=== PATIENT | male | born 1960 | race Caucasian/White ===

== ENCOUNTER → 2020-07-31 15:32 | Outpatient (BNVA) | payer OTHER, SELFPAY | PROVIDERS: Visit Provider Specialist | DX: G40.309 Generalized idiopathic epilepsy and epileptic syndromes, not intractable, without status epilepticus (principal); R20.0 Anesthesia of skin; R20.2 Paresthesia of skin; F17.210 Nicotine dependence, cigarettes, uncomplicated | CPT/HCPCS: 99214 ==

== ENCOUNTER 2020-08-01 14:36 | Outpatient (CLI) | payer OTHER, SELFPAY ==
[2020-08-01 15:05] LABS: Basophils # 0.1 10^3/uL (0.0-0.1); Basophils % 0.7 %; Eosinophils # 0.3 10^3/uL (0.0-0.8); Eosinophils % 4.5 %; Hematocrit 42.4 % (42.0-52.0); Lymphocytes # 2.8 10^3/uL (0.8-4.8); Lymphocytes % 40.8 %; Mean Corpuscular Hemoglobin 31.8 pg (28.0-34.0); Mean Corpuscular Volume 96.4 fL (80-94); Mean Platelet Volume 11.3 fL (7.4-10.4); Monocytes # 0.5 10^3/uL (0.2-0.9); Monocytes % 7.2 %; Neutrophils # 3.18 10^3/uL (1.8-7.7); Neutrophils % 46.5 %; Nucleated Red Blood Cells % 0 %; Platelet Count 152 10^3/cmm (130-400); Red Cell Distribution Width 11.7 % (12.1-15.1); White Blood Count 6.8 10^3/uL (4.0-10.0)
[2020-08-01 15:37] LABS: Valproic Acid Level 77.3 ug/mL (50-100)
[2020-08-01 15:53] LABS: Alanine Aminotransferase 9 U/L (0-41); Albumin Level 4.4 g/dL (3.5-5.2); Alkaline Phosphatase 55 IU/L (40-130); Anion Gap 11.6 (5-19); Aspartate Amino Transferase 17 U/L (0-40); Blood Urea Nitrogen 16 mg/dL (8-23); Carbon Dioxide 30 mmol/L (22-29); Chloride 96 mmol/L (98-107); Globulin 2.8 g/dL (1.3-4.6); Glomerular Filtration Rate 85.5 mL/min (90-130); Glucose 81 mg/dL (65-115); Osmolality Calculated 276 mOsm/kg (285-295); Potassium 4.6 mmol/L (3.5-5.1); Sodium 133 mmol/L (136-145); Thyroid Stimulating Hormone 2.39 uIU/mL (0.27-4.20); Total Bilirubin 0.3 mg/dL (0.15-1.2); Total Protein 7.2 g/dL (6.6-8.7)
== END 2020-08-01 14:37 | disposition home or self-care (01) ==
PROVIDERS: Visit Provider Specialist
DX: R20.2 Paresthesia of skin (principal); R20.0 Anesthesia of skin
CPT/HCPCS: 36415; 80053; 80164; 84443; 85025

== ENCOUNTER 2021-10-06 07:02 | Emergency (ER) | payer OTHER, SELFPAY ==
[2021-10-06 07:09] VITALS: BP 137/85; PULSE 111; RESP 16; TEMP 36.6; O2SAT 95; BMI 29.3
[2021-10-06 07:21] VITALS: BP 142/86; PULSE 96; RESP 16; O2SAT 98
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
[2021-10-06] MEDS: sodium chloride 0.9% 1,000 ML 999 ML IV (07:41)
[2021-10-06 08:01] VITALS: BP 148/85; PULSE 85; RESP 16; O2SAT 100
[2021-10-06 08:26] VITALS: BP 154/98; PULSE 80; RESP 18; O2SAT 100
== END 2021-10-06 08:27 | disposition home or self-care (01) ==
PROVIDERS: Emergency Provider Emergency Medicine
DX: L55.9 Sunburn, unspecified (principal)
CPT/HCPCS: 99283; J7030

== ENCOUNTER 2022-08-28 07:43 | Outpatient (CLI) | payer OTHER, SELFPAY ==
--- NOTE | 2022-08-28 08:30 | CT_ITS ---
WS: [id number] CT chest wo con [id number] HISTORY: R05.9 - Cough, unspecified TECHNIQUE: Axial imaging performed through the thorax. Coronal and sagittal reformats are submitted. All CT scans at [facility] use at least one of these dose optimization techniques: automated exposure control; mA and/or kV adjustment per patient size (includes targeted exams where dose is mat ched to clinical indication); or iterative reconstruction. CONTRAST: None DLP: 355.91 mGy.cm COMPARISON: None available. Lungs and central airway: Chronic emphysema. No mass or pneumonia. No nodules. Pleura: Normal. No pleural effusion. Heart and pericardium: Normal size heart with no pericardial effusion. Mediastinum and karen: No mediastinum or hilar adenopathy. Vessels: Very mild atherosclerosis aorta. Normal size pulmonary artery. Moderate coronary artery calc ifications. Chest wall and lower neck: No soft tissue masses. Upper abdomen: Foreign body-like material in the proximal small bowel may be medicinal. Osseous structures: Very mild anterior wedging of T5, T6 and T7. CT/CT chest wo con [id number] IMPRESSION: 1. Chronic emphysema. No pneumonia or nodules. 2. Coronary artery atherosclerosis. 3. No adenopathy.
--- NOTE | 2022-08-28 09:30 | MR_ITS ---
WS: [id number] MRI LUMBAR SPINE NONCONTRAST TECHNIQUE: Sagittal T1, T2 and STIR imaging. Axial T1 and T2 imaging. CLINICAL INFORMATION: M53.86 - Other specified dorsopathies, lumbar region COMPARISON: None. FINDINGS: Mild lumbar curve. No acute compression. Large LEFT pericentral disc extrusion with moderate to sever e impingement on the LEFT thecal sac. Extruded disc material measures 15 mm in AP dimension. L1-L2: Normal. L2-L3: No significant disc bulging. Moderate arthropathy. Spinal canal and foramen are patent. L3-L4: Mild annular bulging. Mild central canal stenosis. Impingement subarticular recess bilaterally . Mild RIGHT and no significant LEFT foraminal narrowing. Moderate facet arthropathy. L4-L5: Mild annular bulging. Shallow central disc protrusion. Mild central canal stenosis. Impingemen t traversing RIGHT greater than LEFT L5 nerve roots. Mild bilateral foraminal narrowing. Mild facet a rthropathy. L5-S1: Large LEFT pericentral disc extrusion. This impinges the LEFT thecal sac with severe LEFT to R IGHT thecal sac narrowing. Mild LEFT greater than RIGHT foraminal narrowing. Mild facet arthropathy. Visualized pelvic bony structures: Normal. Paravertebral soft tissues: Normal. Chronic anterior wedging in the mid thoracic spine on the dry dip worker imaging. Adrenal glands are normal. I nfrarenal abdominal aortic aneurysm measuring 2.9 x 3.2 cm MR/MR lumbar spine wo con* [id number] IMPRESSION: 1. Large LEFT pericentral disc extrusion with moderate to severe impingement o n the LEFT thecal sac. Extruded disc material measures 15 mm in AP dimension. R ecommend spine surgery consultation. 2. Mild central canal stenosis L3-L4 with trace retrolisthesis. Small RIGHT fo raminal protrusion with mild RIGHT foraminal narrowing. 3. Mild central canal stenosis L4-L5 with impingement traversing L5 nerve root . Mild bilateral foraminal narrowing. 4. Moderate facet arthropathy L3-L5. 5. Infrarenal abdominal aortic aneurysm measuring 2.9 x 3.2 cm AP by transvers e. This can be followed up with CTa abdomen pelvis
== END 2022-08-28 07:44 | disposition home or self-care (01) ==
PROVIDERS: Visit Provider Specialist
DX: J43.9 Emphysema, unspecified (principal); M47.816 Spondylosis without myelopathy or radiculopathy, lumbar region; M48.061 Spinal stenosis, lumbar region without neurogenic claudication; M53.86 Other specified dorsopathies, lumbar region; I25.10 Atherosclerotic heart disease of native coronary artery without angina pectoris; I71.40 Abdominal aortic aneurysm, without rupture, unspecified; R05.9 Cough, unspecified; F17.200 Nicotine dependence, unspecified, uncomplicated
CPT/HCPCS: 71250; 72148

== ENCOUNTER → 2022-09-08 08:13 | Outpatient (BNVA) | payer OTHER, SELFPAY | PROVIDERS: Visit Provider Physician Assistant | DX: M51.27 Other intervertebral disc displacement, lumbosacral region (principal); G83.4 Cauda equina syndrome; M47.816 Spondylosis without myelopathy or radiculopathy, lumbar region; M53.86 Other specified dorsopathies, lumbar region | CPT/HCPCS: 72110 ==

== ENCOUNTER 2022-09-08 10:04 | Inpatient (IN) | payer OTHER, SELFPAY ==
[2022-09-08] VITALS (8 sets, daily range): BP systolic 105–149; BP diastolic 69–80; PULSE 80–101; RESP 15–20; TEMP 36.9–37.1; O2SAT 90–94; BMI 28.0
--- NOTE | 2022-09-08 10:08 | ECG_ITS ---
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 Measurements Intervals [place] Rate: 98 P: 63 TX: 151 QRS: -7 QRSD: 84 T: 61 QT: 327 QTc: 419 Interpretive Statements SINUS RHYTHM INTERPRETATION BASED ON A DEFAULT AGE OF 40 YEARS No previous ECG available for comparison Electronically Signed On 09-09-2022 0:29:47 CDT by Raj Estrella M.D. [email or web address] regional medical [email or web address] Design Automationcleveland clinic hillcrest hospital.[employer]/store/NU/[id number]/[id number] f
--- NOTE | 2022-09-08 10:08 | XR_ITS ---
WS: [id number] XR chest 1V portable [id number] REASON FOR EXAM: surgery FINDINGS: Mild tortuosity of the thoracic aorta. The heart size is normal. Calcified granulomatous disease in both hemithoraces. No active pulmonary parenchymal or pleural disease identified. Chest is unchanged compared to 03/29/2019. XR/XR chest 1V portable [id number] IMPRESSION: Stable chest with no significant abnormality.
--- NOTE | 2022-09-08 10:47 | PC.NURSE ---
PATIENT BELONGINGS patient belongings locked in [facility]- 2 packs cigarettes, 1 internet sales representative, 2 pocket knives, one wallet with a total of $7, all in one dollar bills. 2 bank envelopes, one containing $155- 1-100 bill, 2-20s, 1-10, 5-1s. the other containing $201.65 - 10-20's, 1-one dollar bill, two quarters, one dime and one nickel. patient also had home medications including oxycodone(21 pills in the bottle) all this counted and witnessed with patient himself and Jennifer Cash RN.
[2022-09-08] MEDS: oxyCODONE-APAP 5-325 mg Tablet PO ×3 (12:35→23:32)
[2022-09-08 19:00] LABS: Basophils % 0.4 %; Eosinophils # 0.2 10^3/uL (0.0-0.8); Eosinophils % 2.1 %; Hematocrit 43.1 % (42.0-52.0); Hemoglobin 14.4 g/dL (11.7-16.6); Lymphocytes # 1.9 10^3/uL (0.8-4.8); Lymphocytes % 22.7 %; Mean Corpuscular HGB Conc 33.4 g/dL (30.0-36.0); Mean Corpuscular Hemoglobin 32.7 pg (28.0-34.0); Mean Corpuscular Volume 97.7 fl (80-94); Mean Platelet Volume 11.4 fL (7.4-10.4); Monocytes # 0.8 10^3/uL (0.2-0.9); Monocytes % 9.3 %; Neutrophils # 5.56 10^3/uL (1.8-7.7); Neutrophils % 65.1 %; Nucleated Red Blood Cells % 0 %; Platelet Count 142 10^3/cmm (130-400); Red Blood Count 4.41 10^6/uL (4.1-5.3); Red Cell Distribution Width 12.4 % (12.1-15.1); White Blood Count 8.5 10^3/uL (4.0-10.0)
[2022-09-08 19:22] LABS: Anion Gap 13.9 (5-19); Blood Urea Nitrogen 22 mg/dL (8-23); Calcium 9.6 mg/dL (8.5-10.5); Carbon Dioxide 30 mmol/L (22-29); Chloride 94 mmol/L (98-107); Glucose 68 mg/dL (65-115); Osmolality Calculated 280 mOsm/kg (285-295); Potassium 3.9 mmol/L (3.5-5.1); Sodium 134 mmol/L (136-145)
[2022-09-09] VITALS (21 sets, daily range): BP systolic 99–180; BP diastolic 70–126; PULSE 71–120; RESP 16–18; TEMP 36.2–37; O2SAT 90–97
--- NOTE | 2022-09-09 | XR_ITS ---
WS: [id number] Lumbar spine, C-arm fluoroscopy views, 09/09/2022 Clinical Data: EVELIA PIC Comparison: Lumbar spine, 09/08/2022 Findings: Dr. Shane performed a lumbar decompression. XR/XR lumbar spine 1V port [id number] Impression: Lumbar decompression.
[2022-09-09] MEDS: divalproex DR 500 mg Tablet 1000 MG PO ×2 (00:09→08:46)
--- NOTE | 2022-09-09 05:29 | PC.NURSE ---
pt wedding band removed at this time and placed in pyxis with other personal belongings by this nurse pre operatively
--- NOTE | 2022-09-09 10:26 | PM.HP ---
Providers/Chief Complaint Admitting Physician: Good Shane DO Chief Complaint: Cauaequeina History of Present Illness Mr Pedraza is a 62 year old male patient here today for evaluation of left lower extremity pain. He reports significant left leg pain that has been on going for 2 months with no known injury.? 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 He reports pain in his left buttock region that radiates into his left lower extremity. He reports a burning pain in his left lower extremity. He states coughing increases his pain.? He reports wetting himself and not being able to move his bowels due to lack of sensation in his perineum.? This been progressively getting worse in the last 1 to 2 weeks.? He currently takes Oxycodone and Gabapentin from his PCP for pain relief. He has a recent MRI and is here today to review results and discuss further treatment plan. Chief Complaint: low back pain Onset: 2 months ago Duration: constant Characteristics: aching, burning Severity: 810 Location: lumbar Radiating symptoms: radiates into LLE Aggravating factors: coughing, bending, standing and sitting for long periods at a time. Alleviating factors: Oxycodone, Gabapentin Neuro deficits: reports numbness, tingling, weakness. incontinence of bowel/bladder, saddle anesthesia. Prior tx: medication ? Review of Systems General: Reports: 10 or more systems reviewed and unremarkable except in HPI and below Const: Denies: fever(s), chills or body aches Eyes: Denies: change in vision or blurry vision Card: Denies: chest pain or orthopnea Resp: Denies: dyspnea, productive cough or wheezing GI: Denies: abdominal pain, nausea or vomiting Musc: Reports: back pain and extremity pain Skin/Breast: Denies: changes in skin color or dry skin Neuro: Reports: difficulty walking; Denies: numbness in extremities or weakness in extremities Psych: Denies: anxiety Bo/Lymph: Denies: easy bruising or easy bleeding Medications/Allergies Home Medications Medication Instructions Recorded Confirmed Last Taken Type baclofen 10 mg tablet 10 mg PO BID 08/05/22 09/09/22 09/08/22 08:00 History divalproex 500 mg tablet,delayed 1,000 mg PO BID 90 days #360 tabs 08/05/22 09/09/22 09/08/22 08:00 Rx release (Depakote) gabapentin 250 mg/5 mL oral 300 mg PO TID 08/05/22 09/09/22 09/08/22 08:00 History solution oxycodone 10 mg tablet 10 mg PO QID PRN pain 30 days #120 09/04/22 09/09/22 09/08/22 02:00 Rx tabs Allergies Allergy/AdvReac Type Severity Reaction Status Date / Time Penicillins Allergy unknown Verified 09/08/22 08:15 PFSH Acute PFSH: Family History Other CAD (coronary artery disease) Diabetes Social History Smoking and tobacco status: current every day smoker cigarettes Alcohol intake: current Alcohol intake frequency: holidays/special occasions only Vitals/I&O/Wt Last Vital Signs Temp 98.3 F 09/09/22 07:51 Pulse 91 09/09/22 07:51 Resp 16 09/09/22 07:51 BP 150/85 09/09/22 07:51 Pulse Ox 92 09/09/22 07:51 O2 Del Method Room Air 09/09/22 07:51 09/08/22 09/09/22 09/09/22 22:59 06:59 14:59 Intake Total 480 / 720 0 / 720 Balance 480 / 720 0 / 720 Weight last 48 hrs Weight 224 lb 9.6 oz Physical Exam Narrative: Patient is alert o rient x3 has a goo d general appearan ce normal mood and affect.? Patient presents with anta lgic left gait. ? Demonstrates dorsi flexion but unable to plantarflexion worse on the left than the right. ? No palpatory and percussion pain th roughout the ollie pinous musculature of the thoracolum bar spine.? Decrea sed functional ran ge of motion of th e thoracolumbar sp ine with Flexion t o 35 degrees, exte nds 0 degrees, lat erally bends 10 de grees symmetricall y.? Normal sensati on to light touch through all dermat omal layers.? Norm al sensation light touch down both l ower extremities w ith 4/5 motor stre ngth through left lower extremity 5/ 5 strength through out right? motor g roups.? No palpabl e pain over the SI joints bilaterall y.? Negative Patri ck and Fabere sign .? Positive straig ht leg raise on th e left negative on the right.? Skin is clear warm with normal sensation to light touch, ca lves are supple wi th no medial thigh tenderness,? nega tive Homans' sign. ? No palpable lymp hadenopathy bilate rally.? Reflexes a re 1+ and symmetri c about the knees and and right ankl e, absent to the l eft ankle reflex.? No hyperreflexia or clonus.? Downgo ing Babinski's venkatesh aterally.? Dorsali s pedis and analytical tech ior tibial pulses are 2+.? No palpab le edema bilateral ly. HENMT:?? COMMON NORMALS: no rmocephalic and at raumatic? HEAD & S CALP: normocephali c and atraumatic Resp:?? COMMON NORMALS: no rmal respiratory e ffort Cardio:?? COMMON NORMALS: re gular rate and reg ular rhythm? RATE: regular rate? RHY THM: regular rhyth m GI:?? COMMON NORMALS: So ft to palpation an d non-tender? PALP ATION: Yes Soft to palpation :?? COMMON NORMALS: Ye s no CVA tendernes s? BLADDER/KIDNEY EXAM: Yes no CVA t enderness Back/Pelvis:?? COMMON NORMALS: no CVA tenderness Psych:?? COMMON NORMALS: me ntal status grossl y normal and coope rative Data 09/08/22 18:26 09/08/22 18:26 A&P Assessment and plan (1) Herniated nucleus pulposus, L5-S1, left: 1.? Large LEFT pericentral disc extrusion with moderate to severe impingement on the LEFT thecal sac. Extruded disc material measures 15 mm in AP dimension. Recommend spine surgery consultation. 2.? Mild central canal stenosis L3-L4 with trace retrolisthesis. Small RIGHT foraminal protrusion with mild RIGHT foraminal narrowing. 3.? Mild central canal stenosis L4-L5 with impingement traversing L5 nerve root. Mild bilateral foraminal narrowing. 4.? Moderate facet arthropathy L3-L5. 5.? Infrarenal abdominal aortic aneurysm measuring 2.9 x 3.2 cm AP by transverse. This can be followed up with CTa abdomen pelvis ? After reviewing MRI scan in conjunction with the patient's symptoms concerned of cauda equina syndrome and will recommend direct admission for a left-sided L5-S1 microdiscectomy.? Basically the L5-S1 space is occupied by disc material and that it appears to be extruded.? With his symptoms of saddle anesthesia cauda equina symptoms of uncontrolled bowel and bladder habits is the reasoning for the direct admission and recommended surgical decompression.? Attestations Medical Necessity Statement*: cauda equina Coding Level of Care Code [facility] Herniated nucleus pulposus, L5-S1, left M51.27
--- NOTE | 2022-09-09 10:44 | PC.CHAP ---
Pastoral Care Encounter/Spiritual Assessment Type of Contact [] Declined wader boot top assembler visit [] Patient/Family/Request visit [] Outpatient visit [] Follow-up visit [] Physician referral [] Code/Alert [x] Routine visit [] Staff referral [] Actively dying [x] Patient sleeping [] Family support [] [] Out of room [] Palliative care [] [] Receiving care in room [] Pre-surgical visit [] Trauma [] Long length of stay [] ICU visit [] Other: Relational/Emotional Strength [x] Patient feels connected with others/family/visitors/staff [] Distress [] Loneliness/isolation [] Abandonment Spirituality of Patient [x ] Person of Shantelle [] Attends Zoroastrian of their Shantelle [x] Believes in Prayer [] Reads Bible or Faith materials [] There are Spiritual issues to be addressed Trim Machine Adjuster Interventions [x] Prayer [x] Active listening [] Non-anxious presence [] Spiritual/emotional support [] Crisis/trauma care [] Spiritual counseling [] Bereavement support [] Provided bereavement packet [] Provided Bible/devotional materials [] Provided toy/stuffed animal, coloring book to patient or family member [] Provided Communion [] Anointing/[place] [] Salvation [x] Completed spiritual assessment [] Other: Impact on Illness or Injury [] Angry [] Fearful [] Anxious [] Often cries [] Exhaustion [] Unable to work [] Unable to attend jew [] Unable to walk/stand [] Unable to read [] Unable to drive [] Unable to eat/drink [] Unable to sleep [] Unable to be with family [] Patient intubated [] Other: Summary Time spent with patient 10 min
[2022-09-09] MEDS: oxyCODONE-APAP 5-325 mg Tablet PO ×2 (10:51→16:58)
--- NOTE | 2022-09-09 12:18 | PC.NURSE ---
pt went to surgery
--- NOTE | 2022-09-09 12:22 | ANES.PREANE2 ---
Pre-Anesthetic Assessment Height/Weight: Height 1.91 m Weight 101.877 kg Temp Pulse Resp BP Pulse Ox O2 Del Method 98.2 F 79 16 143/83 92 Room Air 09/09/22 12:17 09/09/22 12:17 09/09/22 12:17 09/09/22 12:17 09/09/22 12:17 09/09/22 12:17 Preop Diagnosis: Herniated nucleus pulposus left L5-S1, cauda equina syndrome Operation Date: 09/09/22 13:00 Proposed Procedures p Left L5-S1 Microdiscectomy(Left) - Good Shane, DO Familial anesthetic complications: None Was Beta Praveena taken within 24 hours: N/A Was Clonidine taken within 24 hours: N/A Last intake: Intake Last Liquid Date 09/08/22 Last Liquid Time 23:45 Last Solid Date 09/08/22 Last Solid Time 18:00 Social No alcohol and No tobacco Exam alert, oriented x 3, clear to auscultation bilaterally and regular rate & rhythm Airway Dentition: partials Neuropsych seizure/epilepsy cauda equina syndrome Anesthetic Plan ASA status: 2 Anesthesia: General Risk of > 500 ml blood loss (7ml/kg in children): No Medications/Allergies Home Medications Medication Instructions Recorded Confirmed Last Taken Type baclofen 10 mg tablet 10 mg PO BID 08/05/22 09/09/22 09/08/22 08:00 History divalproex 500 mg tablet,delayed 1,000 mg PO BID 90 days #360 tabs 08/05/22 09/09/22 09/08/22 08:00 Rx release (Depakote) gabapentin 250 mg/5 mL oral 300 mg PO TID 08/05/22 09/09/22 09/08/22 08:00 History solution oxycodone 10 mg tablet 10 mg PO QID PRN pain 30 days #120 09/04/22 09/09/22 09/08/22 02:00 Rx tabs Allergies Allergy/AdvReac Type Severity Reaction Status Date / Time Penicillins Allergy unknown Verified 09/08/22 08:15 Current Medications Generic Name Dose Route Start Last Admin Trade Name Freq PRN Reason Stop Dose Admin Divalproex Sodium 1,000 mg 09/08/22 23:50 09/09/22 08:[address] 500 Mg Tablet PO 1,000 mg BID KATE Administration Oxycodone/Acetaminophen 1 - 2 tab 09/08/22 10:14 09/09/22 10:51 Oxycodone-Apap 5-325 Mg Tablet PO 2 tab Q4H PRN Administration MODERATE TO SEVERE PAIN PFSH Anesthesia Family History Other CAD (coronary artery disease) Diabetes Social History Smoking and tobacco status: current every day smoker cigarettes Alcohol intake: current Alcohol intake frequency: holidays/special occasions only Data Anesthesia 09/08/22 18:26 09/08/22 18:26 Short CBC 09/08/22 Range/Units 18:26 WBC 8.5 (4.0-10.0) 10^3/uL Hgb 14.4 (11.7-16.6) g/dL Hct 43.1 (42.0-52.0) % MCV 97.7 H (80-94) fl Plt Count 142 (130-400) 10^3/cmm Neut % (Auto) 65.1 % Neut # (Auto) 5.56 (1.8-7.7) 10^3/uL BMP 09/08/22 18:26 Sodium 134 L Potassium 3.9 Chloride 94 L Carbon Dioxide 30 H BUN 22 Creatinine 1.2 Glucose 68 Calcium 9.6 Cardiac Studies: No Data to Display
[2022-09-09] MEDS: sodium chloride 0.9% 1,000 ML 30 ML (12:25)
[2022-09-09] MEDS: clindamycin 900 MG/50 ML PREMIX 100 MG IV (12:54)
--- NOTE | 2022-09-09 14:06 | PM.OP ---
Operative Report Date of procedure: September 09, 2022 Pre-op diagnosis: Preop Diagnosis Herniated nucleus pulposus left L5-S1, cauda equina syndrome Post-op diagnosis: same Procedure done: 1. Left L5/S1 laminectomy with partial facetectomy and diskectomy Surgeon: Good Shane Malted Milk Mixer: Miguel Hooker Malted Milk Mixer: The surgical clinical reviewer, Miguel Hooker, PAC was needed for his expertise under the microscope. He was important and necessary throughout the procedure to complete in a safe and timely manner. He assisted with patient positioning prepping and draping tissue retraction suctioning of the operative field protection of the dural sac and tissue closure Estimated blood loss (mL): 5 Procedure: 1. Left L5/S1 laminectomy with partial facetectomy and diskectomy Patient is brought to the operative suite. After undergoing anesthesia they are placed in the prone position. All areas of impingement are well padded. Patient is then prepped and draped in the normal sterile fashion. A skin incision is made over the L5/S1 level. This is confirmed under c-arm guidance. A series of dilators are passed and the tubular retractor is docked on the L5 lamina. A bovie is used to clear the soft tissue off the lamina and the L 5/S1 facet joint. A high speed jarrod is then used to perform the laminectomy and take down the medial aspect of the L 5/S1 facet joint. A kerrison rongeure was then used to take down the remaining lamina and smooth the edge of the laminectomy up to the point where the ligamentum flavum attaches. Attention was then brought to the medial aspect of the facet joint. The remaining medial aspect of the superior and inferior aspect of the facet joint were taken down with the kerrison from the pedicle of L5 to S1. The facet joint had significant hypertrophy. Attention was then brought to the Ligamentum Flavum. The ligament was taken down from the lamina of L5 to S1 and out medially to the remaining facet joint. The ligament was thick. The dura was then exposed. The dura was in good repair. The L5 nerve was then traced with a curette out the L5/S1 foramen and found to be adequately decompressed. The S1 nerve was traced with a curette around the S1 pedicle. The lateral recess was opened with a kerrison helping to further decompress the S1 nerve. The disc was identified and removed toit wasa large extruded disc. Wound is then irrigated copiously with saline and surgiflo is used to stop any bleeding. The tubular retractor is removed and the wound is closed with vicryl and monocryl suture. Glue is then used to protect the wound. A sterile dressing is then placed. Patient was then placed in the supine position and transferred to the PACU in stable condition.
[2022-09-09] MEDS: labetalol 5 mg/mL SDV 20mL 10 MG IVP (14:21)
--- NOTE | 2022-09-09 15:16 | ANE.PACU2 ---
Inpatient post-anesthesia follow up: Airway intact: Yes Vital signs: Temperature 97.2 F Pulse Rate 85 Respiratory Rate 17 Blood Pressure 139/80 Pulse Oximetry 95 Oxygen Delivery Me thod Nasal Cannula Oxygen Flow Rate 2 Fraction of Inspir ed Oxygen Hydration adequate: Yes Nausea and vomiting: No Pain level: 1 Mental status: Baseline
--- NOTE | 2022-09-10 13:50 | P.DS_ITS ---
Discharge Providers Date of Admission: 09/08/22 10:04 Date of Discharge: September 09, 2022 Attending Provider at Admission: Good Shane DO Attending Provider at Discharge: Good Shane DO Diagnoses at Discharge Discharge Diagnosis (1) Herniated nucleus pulposus, L5-S1, left: Status: Acute Reason for Visit Reason for Visit: [place] Discharge Data Studies Completed and Pending Completed Studies During Hospitalization Category Date Time Status CXRP [XR chest 1V portable [id number]] Routine Exams 09/08/22 10:08 Completed XR lumbar spine 1V port [id number] Routine Exams 09/09/22 Completed Pending at discharge Category Date Time Status C-arm Fluoroscopy [id number] Routine Exams 09/09/22 10:09 Taken Radiology Impressions Chest X-Ray 09/08/22 10:08 IMPRESSION: Stable chest with no significant abnormality. Lumbar Spine X-Ray 09/09/22 00:00 Impression: Lumbar decompression. Laboratory Results WBC 8.5 10^3/uL (4.0-10.0) 09/08/22 18:26 RBC 4.41 10^6/uL (4.1-5.3) 09/08/22 18:26 Hgb 14.4 g/dL (11.7-16.6) 09/08/22 18:26 Hct 43.1 % (42.0-52.0) 09/08/22 18:26 MCV 97.7 fl (80-94) H 09/08/22 18:26 MCH 32.7 pg (28.0-34.0) 09/08/22 18:26 MCHC 33.4 g/dL (30.0-36.0) 09/08/22 18:26 RDW 12.4 % (12.1-15.1) 09/08/22 18:26 Plt Count 142 10^3/cmm (130-400) 09/08/22 18:26 MPV 11.4 fL (7.4-10.4) H 09/08/22 18:26 Neut % (Auto) 65.1 % 09/08/22 18:26 Lymph % (Auto) 22.7 % 09/08/22 18:26 [place] % (Auto) 9.3 % 09/08/22 18:26 Eos % (Auto) 2.1 % 09/08/22 18:26 Baso % (Auto) 0.4 % 09/08/22 18: Neut # (Auto) 5.56 10^3/uL (1.8-7.7) 09/08/22 18: Lymph # (Auto) 1.9 10^3/uL (0.8-4.8) 09/08/22 18: [place] # (Auto) 0.8 10^3/uL (0.2-0.9) 09/08/22 18: Eos # (Auto) 0.2 10^3/uL (0.0-0.8) 09/08/22 18: Baso # (Auto) 0.0 10^3/uL (0.0-0.1) 09/08/22 18: Nucleated RBC % (auto) 0 % 09/08/22 18: Nucleated RBCs # 0.0 /100WBC 09/08/22 18:26 Sodium 134 mmol/L (136-145) L 09/08/22 18: Potassium 3.9 mmol/L (3.5-5.1) 09/08/22 18: Chloride 94 mmol/L (98-107) L 09/08/22 18:26 Carbon Dioxide 30 mmol/L (22-29) H 09/08/22 18:26 Anion Gap 13.9 (5-19) 09/08/22 18:26 BUN 22 mg/dL (8-23) 09/08/22 18: Creatinine 1.2 mg/dL (0.7-1.2) 09/08/22 18:26 GFR Calculation 61.0 mL/min (90-130) L 09/08/22 18:26 Glucose 68 mg/dL (65-115) 09/08/22 18: Calculated Osmolality 280 mOsm/kg (285-295) L 09/08/22 18:26 Calcium 9.6 mg/dL (8.5-10.5) 09/08/22 18:26 Vitals Last Vital Signs Temp 97.8 F 09/09/22 15:05 Pulse 85 09/09/22 16:05 Resp 18 09/09/22 17:41 BP 126/83 09/09/22 16:05 Pulse Ox 93 09/09/22 16:05 O2 Del Method Nasal Cannula 09/09/22 16:05 O2 Flow Rate 2 09/09/22 15:23 Discharge Plan Discharge Patient Disposition: Home Condition: Stable Prescriptions: New oxycodone 10 mg tablet 10 mg PO Q4H PRN (Reason: pain) 7 Days Qty: 40 0RF Continued gabapentin 250 mg/5 mL solution 300 mg PO TID baclofen 10 mg tablet 10 mg PO BID divalproex [Depakote] 500 mg tablet,delayed release (DR/EC) 1,000 mg PO BID 90 Days Qty: 360 3RF oxycodone 10 mg tablet 10 mg PO QID PRN (Reason: pain) 30 Days Qty: 120 0RF Discharge Orders: Discharge Order (Routine); Ordered 09/09/22 Ordered By: Good Shane Referrals: Good Shane DO [Physician] - 09/24/22 10:45 am (APPOINTMENT WITH DANIEL HUGHES) Jeannette Farnsworth DO [Referring] - 09/14/22 2:20 pm (APPOINTMENT WITH BRENDAN ELAM) Discharge Diet: Advance as tolerated Discharge Activity: Limit activity as instructed Patient Instructions: Oxycodone, Rapid Release (By mouth), Opioid Safety Activity Restrictions/Additional Instructions: Thank you for [facility] for your care! The following is a list of instructions, from your provider, to follow upon your discharge to ensure you have the optimal recovery from your recent injury orsurgery. Follow-up care is a fry part of your treatment and safety. Be sure to make and go to all appointments, and call your doctor if you are having problems. If you do not already have a follow-up appointment made, call Dr. Shane office in the next 1-3 days to make follow up appointment for 2 weeks at [phone]. It is also a good idea to know your test results and keep a list of the medicines you take. Medications will be prescribed for you at your provider's discretion. These medications are to be used as instructed; if they are taken more often that prescribed they will not be refilled early and in most cases will not be refilled at all. > When a refill is needed,you should contact [facility] 2-3 business days before your prescription runs out. Medications will NOT be refilled by automotive consultant providers after hours! > Many pain medications contain Tylenol (Acetaminophen). Do not consume more than 4,000 mg of Tylenol per day in total with any combination ofmedications. > Pain medications can cause constipation. Please use an over the counter stool softener as directed, while taking pain medications. Consulty our local pharmacist with questions or recommendations on stool softeners. If constipation persists, contact our office or your primary care provider. > While under our care,you are not to receive pain medications or other controlled substances from any other provider unless our office is notified and approves. Any attempts to do so will result in refusal to prescribe any further pain medications and possible dismissal from our practice. ? Your wound and/or dressing should remain clean and dry for 2 days after surgery. On postoperative day 2 (48 hours after your surgery) the dressing (if present) should be removed and it is okay to shower and get the incision wet. Pad dry afterwards. No further dressing should be required from that point on. Do not put any creams or ointments on theincision > It is normal for there to be a small amount of discharge (bloody or blood tinged) present from a surgical wound for the first 1-3days. > The wound should be examined twice a day for signs of infection. Mild redness or bruising is to be expected but indications that an infection maybe starting would include; An increase in redness, swelling, or discharge, a foul odor present around the incision, and/or a fever greater than 101 ?F ? Showering is permitted, however we ask that you do not take a bath, sit in a whirlpool / Jacuzzi, or go swimming for 1 month. For only the first 2 days after surgery, lt wilt be necessary for you to cover your wound/dressing with plastic and tape to keep it dry. ? Walking is essential for the healing process after surgery. We would like you to slowly advance your walking. This should be done on relatively flat clear ground (inside or out) or can be done on a treadmill. Remember this goal does not have to happen all at once, slowly increase your distance and duration. This can be broken into more more than one walk per day as tolerated. Patients who walk as directed after surgery rarely require Physical Therapy. In the unlikely event this issue arises your provider will direct hospital staff to make the appropriate arrangements. ? No lifting over 5 pounds {a gallon of milk) or bending/twisting until further notice. Each of these activities places an unnecessary amount of stress onto the body and can impede the delicate healing process. > Instead of bending at the waist, keep your back straight and bend at the knees. > Instead of twisting your torso, keep your back straight and turn your entire body with your feet. ? You may sleep in any position which makes you comfortable. Many patients find comfort sleeping in a reclining chair. It is not abnormal to have difficulty sleeping for the first several weeks following your surgery. We recommend trying Benadry! or Tylenol PM as directed to help with your sleeping difficulties. Both medications are over the counter and available withoutprescription. ? NO SMOKING!!! Smoking dramatically increases the probability of developing postoperative wound infections. ? Common complaints after lumbar and/or thoracic spine surgery include, but are not limited to: numbness and/or tingling in the legs, pain around the incision and surrounding tissues, muscle spasms, or stiffness of the middle to low back. Contact our office if these symptoms persist or if an acute change occurs. ? No driving for the first 3-5days, and not while taking narcotics until seen at your follow-up appointment and cleared. There are no restrictions for riding on short trips, however if you take a longer trip, arrangements should be made to make regular stops to get out of the vehicle and stretch . ? Swelling is an unfortunate event that will take place with any surgery and is the primary source of your postoperative discomfort. While walking and regular approved activities helps control inflammation, there are additional steps you can take to minimizeswelling. > Place ice over the surgical site and surrounding tissue for twenty minutes, followed by applying a low/medium heat (heating pad) for an additional twenty minutes every 1-2 hours as needed for painrelief. > You may use of over the counter anti-inflammatory medications (Ibuprofen, Motrin, Aleve, Advil, etc) as directed on the package label. These types of medicines wm significantly reduce the amount of discomfort you experience after surgery from swelling. It should be noted that if you have and allergy to any of these medications, or a history of ulcers or kidney disease you should consult you primary care provider prior to starting these medications. Discharge Attestations Time Spent in Discharge Care*: less than 30 min Quality Metrics Clinical Quality Measures [ No reported AMI, CVA or VTE this stay] Coding Level of Care Code Acute Code for Chg Fwd Diagnoses Herniated nucleus pulposus, L5-S1, left M51.27
== END 2022-09-09 17:45 | disposition home or self-care (01) | DRG 519 ==
PROVIDERS: Physician Assistant; Admitting Provider Orthopaedic Surgery; Visit Provider Orthopaedic Surgery
PROC: 0SB40ZZ Excision of Lumbosacral Disc, Open Approach (ICD-10-PCS; principal; 2022-09-09 12:50)
DX: M51.27 Other intervertebral disc displacement, lumbosacral region (principal); G83.4 Cauda equina syndrome; Z79.891 Long term (current) use of opiate analgesic; Z88.0 Allergy status to penicillin; F17.210 Nicotine dependence, cigarettes, uncomplicated
CPT/HCPCS: 36415; 71045; 72020; 76000; 80048; 85025; 93005; J1100; J2370; J2405; J2704; J2710; J3010; J3490; J7030

== ENCOUNTER 2022-10-18 16:01 | Emergency (ER) | payer OTHER, SELFPAY ==
[2022-10-18 16:15] VITALS: BP 133/90; PULSE 108; RESP 14; TEMP 36.7; O2SAT 96; BMI 27.2
--- NOTE | 2022-10-18 16:49 | XRR_ITS ---
PROCEDURE INFORMATION: Exam: XR Chest Exam date and time: 10/18/2022 5:00 PM Age: 62 years old Clinical indication: Fever TECHNIQUE: Imaging protocol: Radiologic exam of the chest. Views: 1 view. COMPARISON: CR XR chest 1V portable [id number] 09/08/2022 9:26 AM FINDINGS: Lungs: There is an indistinct nodular density projecting above the left hilum that may be infectious or neoplastic in nature. Remaining lung birch are aerated and clear. Pleural spaces: Unremarkable. No pleural effusion. No pneumothorax. Heart/Mediastinum: Unremarkable. No cardiomegaly. Bones/joints: Unremarkable for age. XR/XR chest 1V portable [id number] IMPRESSION: Indistinct nodular opacity left upper lobe that may be infectious or neoplastic in nature. CT chest recommended for further evaluation.
--- NOTE | 2022-10-18 16:50 | ED_ITS ---
Documented by User: Ferdinand Dominguez DO 10/18/22 17:57 HPI - Fever General: Chief Complaint: Fever Stated Complaint: Fever, Sore throat Time Seen by Provider: 10/18/22 16:37 Source: patient Mode of arrival: ambulatory Limitations: no limitations History of Present Illness: This patient presents to the emergency department because he had fever and body aches and chills over the past 3 to 4 days. He denies any known exposure to infectious disease. He states he has had mild sore throat and a mild nonproductive cough. He did have 24 hours of diarrhea but no abdominal pain and no vomiting and diarrhea resolved. Again no travel no recent antibiotic use no known exposure to infectious disease. Is a smoker. Had lumbar laminectomy approximately 6 weeks ago without sequelae. He states he has been laying in the bed for the last couple days because not feeling well and he has had some more back achiness but no loss of bowel or bladder control, anesthesia of the perin eal area or weakness. No known exposure to COVID-19 etc. MD elicited complaint: fever Associated symptoms: Reports chills, cough and diarrhea; Deny abdominal pain, flank pain, chest pain, dysuria, extremity pain, headache(s), nasal congestion, nausea or vomiting Review of Systems Const: Reports: fever(s), chills and body aches Eyes: Denies: change in vision or blurry vision ENMT: Reports: throat pain; Denies: odynophagia, nasal discharge or nasal congestion Card: Denies: chest pain, palpitations or irregular heart rhythm Resp: Reports: non-productive cough and wheezing; Denies: dyspnea or productive cough GI: Reports: diarrhea; Denies: abdominal pain, nausea, vomiting, hematemesis or melena : Denies: flank pain, difficulty urinating, dysuria or urinary frequency Musc: Denies: neck pain, extremity pain or extremity swelling Skin/Breast: Denies: rash, pruritus or erythema Neuro: Denies: headache(s), numbness in extremities or weakness in extremities Endo: Denies: polyuria or polydipsia PFSH ED PFSH: Family History Other CAD (coronary artery disease) Diabetes Social History Smoking and tobacco status: current every day smoker cigarettes Alcohol intake: current Alcohol intake frequency: holidays/special occasions only Physical Exam Narrative: EXAM NARRATIVE: The patient is awake alert and cooperative during examination Const: COMMON NORMALS: no acute distress, average body habitus and alert GENERAL APPEARANCE: cooperative and comfortable ORIENTATION/CONSCIOUSNESS: Yes awake HENMT: COMMON NORMALS: normocephalic, atraumatic, Normal nasal mucous membranes and turbinates present and moist oral mucous membranes HEAD & SCALP: normocephalic and atraumatic NOSE: Normal nasal mucous membranes and turbinates present Eye: COMMON NORMALS: Equal, round and reactive pupils present, EOMs intact bilaterally and conjunctivae normal CONJUNCTIVA: Yes conjunctivae normal P UPIL: Yes Equal, round and reactive pupils present Neck/C-Spine: COMMON NORMALS: full ROM, no meningeal signs, no JVD and No carotid bruits Chest: COMMONS NORMALS: normal inspection of the chest and normal palpation of entire chest wall Resp: COMMON NORMALS: normal respiratory effort, No retractions and No use of accessory muscles EFFORT & INSPECTION: Yes able to speak in complete sentences AUSCULTATION: no crackles, no rhonchi and wheezes (Faint scattered wheezes) Cardio: COMMON NORMALS: no JVD, regular rate, regular rhythm, No murmurs present (Cardio) and Peripheral pulses 2+ throughout RATE: regular rate RHYTHM: regular rhythm PERIPHERAL PULSES: Peripheral pulses 2+ throughout GI: COMMON NORMALS: Normal to inspection, nondistended, normoactive bowel sounds present, Soft to palpation, non-tender and no masses PALPATION: Yes Soft to palpation : COMMON NORMALS: Yes no CVA tenderness BLADDER/KIDNEY EXAM: Yes no CVA tenderness Back/Pelvis: COMMON NORMALS: no CVA tenderness, thoracic and lumbar spine normal to inspection, no thoracic nor lumbar tenderness, thoraco-lumbar ROM normal and straight leg raise negative bilaterally Extremity: COMMON NORMALS: normal to inspection, full ROM, capillary refill normal, no calf tenderness and no pedal edema Neuro: COMMON NORMALS: moves all extremities, no focal motor deficits and no sensory deficits noted SENSORIUM/ORIENTATION: Yes alert MENINGEAL SIGNS: Yes no meningeal signs CRANIAL NERVES: Yes CN normal except as noted Psych: COMMON NORMALS: mental status grossly normal Skin: COMMON NORMALS: no rashes or lesions noted, turgor normal and no jaundice GENERAL SKIN EXAM: no rashes or lesions noted and turgor normal Course Reevaluation(s): Reevaluation #1: Case discussed and turned over to Dr. Wayne Time: 17:54 Vital Signs: Vital signs: Vital Signs Temperature 98.1 F 10/18/22 16:15 Pulse Rate 83 10/18/22 18:00 Respiratory Rate 14 10/18/22 16:15 Blood Pressure 195/114 10/18/22 18:00 Pulse Oximetry 97 10/18/22 18:00 Oxygen Delivery Me thod Room Air 10/18/22 18:00 MDM - Fever Medical Decision Making Patient with a 3-day history of fever with sore throat and mild nonproductive cough. Patient is being evaluated in the emergency department for the symptoms to ensure no evidence of pneumonia, strep pharyngitis, COVID-19 etc. Lab Data I reviewed the patient's lab results. 10/18/22 17:10 10/18/22 17:10 Radiology Impressions Chest X-Ray 10/18/22 16:49 IMPRESSION: Indistinct nodular opacity left upper lobe that may be infectious or neoplastic in nature. CT chest recommended for further evaluation. Chest CT 10/18/22 17:48 IMPRESSION: 1. Left upper lobe subsegmental airspace opacification suggestive of a pneumonic infiltrate, 1 month follow-up exam and close clinical correlation advised to assess for resolution as an underlying neoplastic process cannot be excluded. 2. Several upper thoracic spine compression deformities appear chronic. 3. Bilateral mild perinephric edema suggestive of renal insufficiency. 4. Diverticulosis without diverticulitis somewhat visualized. 5. Scattered prominent subcentimeter short axis nonspecific mediastinal lymph nodes. 6. Coronary artery atherosclerotic calcifications. 7. Emphysematous changes. COMMENTS: In the absence of a history or active diagnosis of lung cancer, it is recommended that this patient with emphysema be evaluated for enrollment in a low dose CT lung cancer screening program. Laboratory Results WBC 6.9 10^3/uL (4.0-10.0) 10/18/22 17:10 RBC 4.77 10^6/uL (4.1-5.3) 10/18/22 17:10 Hgb 15.3 g/dL (11.7-16.6) 10/18/22 17:10 Hct 45.3 % (42.0-52.0) 10/18/22 17:10 MCV 95.0 fl (80-94) H 10/18/22 17:10 MCH 32.1 pg (28.0-34.0) 10/18/22 17:10 MCHC 33.8 g/dL (30.0-36.0) 10/18/22 17:10 RDW 11.7 % (12.1-15.1) L 10/18/22 17:10 Plt Count 172 10^3/cmm (130-400) 10/18/22 17:10 MPV 10.7 fL (7.4-10.4) H 10/18/22 17:10 Neut % (Auto) 58.9 % 10/18/22 17:10 Lymph % (Auto) 27.7 % 10/18/22 17:10 [place] % (Auto) 7.8 % 10/18/22 17:10 Eos % (Auto) 4.3 % 10/18/22 17:10 Baso % (Auto) 0.7 % 10/18/22 17:10 Neut # (Auto) 4.08 10^3/uL (1.8-7.7) 10/18/22 17:10 Lymph # (Auto) 1.9 10^3/uL (0.8-4.8) 10/18/22 17:10 [place] # (Auto) 0.5 10^3/uL (0.2-0.9) 10/18/22 17:10 Eos # (Auto) 0.3 10^3/uL (0.0-0.8) 10/18/22 17:10 Baso # (Auto) 0.1 10^3/uL (0.0-0.1) 10/18/22 17:10 Nucleated RBC % (auto) 0 % 10/18/22 17:10 Nucleated RBCs # 0.0 /100WBC 10/18/22 17:10 Sodium 133 mmol/L (136-145) L 10/18/22 17:10 Potassium 4.5 mmol/L (3.5-5.1) 10/18/22 17:10 Chloride 95 mmol/L (98-107) L 10/18/22 17:10 Carbon Dioxide 27 mmol/L (22-29) 10/18/22 17:10 Anion Gap 15.5 (5-19) 10/18/22 17:10 BUN 14 mg/dL (8-23) 10/18/22 17:10 Creatinine 0.9 mg/dL (0.7-1.2) 10/18/22 17:10 GFR Calculation 85.0 mL/min (90-130) L 10/18/22 17:10 Glucose 90 mg/dL (65-115) 10/18/22 17:10 Calculated Osmolality 276 mOsm/kg (285-295) L 10/18/22 17:10 Calcium 9.2 mg/dL (8.5-10.5) 10/18/22 17:10 Total Bilirubin 0.6 mg/dL (0.15-1.2) 10/18/22 17:10 AST 17 U/L (0-40) 10/18/22 17:10 ALT 10 U/L (0-41) 10/18/22 17:10 Alkaline Phosphatase 60 U/L (40-130) 10/18/22 17:10 Total Protein 7.2 g/dL (6.6-8.7) 10/18/22 17:10 Albumin 4.1 g/dL (3.5-5.2) 10/18/22 17:10 Globulin 3.1 g/dL (1.3-4.6) 10/18/22 17:10 SARS-CoV-2 Ag (Rapid) negative (Negative) 10/18/22 17:22 Group A Strep Rapid Negative (Negative) 10/18/22 17:23 Discharge Plan Discharge Patient Disposition: Home Clinical Impression: Pneumonia Condition: Stable Prescriptions: New doxycycline hyclate 100 mg tablet 100 mg PO BID 7 Days Qty: 14 0RF No Action gabapentin 250 mg/5 mL solution 300 mg PO TID baclofen 10 mg tablet 10 mg PO BID divalproex [Depakote] 500 mg tablet,delayed release (DR/EC) 1,000 mg PO BID 90 Days Qty: 360 3RF montelukast 10 mg tablet 10 mg PO DAILY fluticasone propion-salmeterol [Wixela Inhub] 500-50 mcg/dose blister with device 1 inh inhalation BID oxycodone 10 mg tablet 10 mg PO QID PRN (Reason: pain) 30 Days Qty: 120 0RF Discharge Orders: Discharge ED (Routine); Ordered 10/18/22 Ordered By: Montez Wayne Referrals: Jeannette Farnsworth DO [Primary Care Provider] - 1-3 days Discharge Diet: Advance as tolerated Discharge Activity: Resume usual activity Patient Instructions: Community Acquired Pneumonia (ED) Coding Level of Care Code ED Adult Basic Education Manager for Chg Fwd Documented by User: Montez Wayne MD 10/18/22 19:13 HPI - Fever General: Chief Complaint: Fever Stated Complaint: Fever, Sore throat Time Seen by Provider: 10/18/22 16:37 PFSH ED PFSH: Family History Other CAD (coronary artery disease) Diabetes Social History Smoking and tobacco status: current every day smoker cigarettes Alcohol intake: current Alcohol intake frequency: holidays/special occasions only Course Vital Signs: Vital signs: Vital Signs Temperature 98.1 F 10/18/22 16:15 Pulse Rate 83 10/18/22 18:00 Respiratory Rate 14 10/18/22 16:15 Blood Pressure 195/114 10/18/22 18:00 Pulse Oximetry 97 10/18/22 18:00 Oxygen Delivery Me thod Room Air 10/18/22 18:00 MDM - Fever Medical Decision Making Patient with a 3-day history of fever with sore throat and mild nonproductive cough. Patient is being evaluated in the emergency department for the symptoms to ensure no evidence of pneumonia, strep pharyngitis, COVID-19 etc. Patient presents here with fever chills CT chest does show pneumonia we will start him on doxycycline he is to follow-up with his PCP along with his spine surgeon he has no signs of spinal infection blood work is normal he is return if worsening he understands agrees to plan. Lab Data 10/18/22 17:10 10/18/22 17:10 Radiology Impressions Chest X-Ray 10/18/22 16:49 IMPRESSION: Indistinct nodular opacity left upper lobe that may be infectious or neoplastic in nature. CT chest recommended for further evaluation. Chest CT 10/18/22 17:48 IMPRESSION: 1. Left upper lobe subsegmental airspace opacification suggestive of a pneumonic infiltrate, 1 month follow-up exam and close clinical correlation advised to assess for resolution as an underlying neoplastic process cannot be excluded. 2. Several upper thoracic spine compression deformities appear chronic. 3. Bilateral mild perinephric edema suggestive of renal insufficiency. 4. Diverticulosis without diverticulitis somewhat visualized. 5. Scattered prominent subcentimeter short axis nonspecific mediastinal lymph nodes. 6. Coronary artery atherosclerotic calcifications. 7. Emphysematous changes. COMMENTS: In the absence of a history or active diagnosis of lung cancer, it is recommended that this patient with emphysema be evaluated for enrollment in a low dose CT lung cancer screening program. Laboratory Results WBC 6.9 10^3/uL (4.0-10.0) 10/18/22 17:10 RBC 4.77 10^6/uL (4.1-5.3) 10/18/22 17:10 Hgb 15.3 g/dL (11.7-16.6) 10/18/22 17:10 Hct 45.3 % (42.0-52.0) 10/18/22 17:10 MCV 95.0 fl (80-94) H 10/18/22 17:10 MCH 32.1 pg (28.0-34.0) 10/18/22 17:10 MCHC 33.8 g/dL (30.0-36.0) 10/18/22 17:10 RDW 11.7 % (12.1-15.1) L 10/18/22 17:10 Plt Count 172 10^3/cmm (130-400) 10/18/22 17:10 MPV 10.7 fL (7.4-10.4) H 10/18/22 17:10 Neut % (Auto) 58.9 % 10/18/22 17:10 Lymph % (Auto) 27.7 % 10/18/22 17:10 [place] % (Auto) 7.8 % 10/18/22 17:10 Eos % (Auto) 4.3 % 10/18/22 17:10 Baso % (Auto) 0.7 % 10/18/22 17:10 Neut # (Auto) 4.08 10^3/uL (1.8-7.7) 10/18/22 17:10 Lymph # (Auto) 1.9 10^3/uL (0.8-4.8) 10/18/22 17:10 [place] # (Auto) 0.5 10^3/uL (0.2-0.9) 10/18/22 17:10 Eos # (Auto) 0.3 10^3/uL (0.0-0.8) 10/18/22 17:10 Baso # (Auto) 0.1 10^3/uL (0.0-0.1) 10/18/22 17:10 Nucleated RBC % (auto) 0 % 10/18/22 17:10 Nucleated RBCs # 0.0 /100WBC 10/18/22 17:10 Sodium 133 mmol/L (136-145) L 10/18/22 17:10 Potassium 4.5 mmol/L (3.5-5.1) 10/18/22 17:10 Chloride 95 mmol/L (98-107) L 10/18/22 17:10 Carbon Dioxide 27 mmol/L (22-29) 10/18/22 17:10 Anion Gap 15.5 (5-19) 10/18/22 17:10 BUN 14 mg/dL (8-23) 10/18/22 17:10 Creatinine 0.9 mg/dL (0.7-1.2) 10/18/22 17:10 GFR Calculation 85.0 mL/min (90-130) L 10/18/22 17:10 Glucose 90 mg/dL (65-115) 10/18/22 17:10 Calculated Osmolality 276 mOsm/kg (285-295) L 10/18/22 17:10 Calcium 9.2 mg/dL (8.5-10.5) 10/18/22 17:10 Total Bilirubin 0.6 mg/dL (0.15-1.2) 10/18/22 17:10 AST 17 U/L (0-40) 10/18/22 17:10 ALT 10 U/L (0-41) 10/18/22 17:10 Alkaline Phosphatase 60 U/L (40-130) 10/18/22 17:10 Total Protein 7.2 g/dL (6.6-8.7) 10/18/22 17:10 Albumin 4.1 g/dL (3.5-5.2) 10/18/22 17:10 Globulin 3.1 g/dL (1.3-4.6) 10/18/22 17:10 SARS-CoV-2 Ag (Rapid) negative (Negative) 10/18/22 17:22 Group A Strep Rapid Negative (Negative) 10/18/22 17:23 Discharge Plan Discharge Patient Disposition: Home Clinical Impression: Pneumonia Condition: Stable Prescriptions: New doxycycline hyclate 100 mg tablet 100 mg PO BID 7 Days Qty: 14 0RF No Action gabapentin 250 mg/5 mL solution 300 mg PO TID baclofen 10 mg tablet 10 mg PO BID divalproex [Depakote] 500 mg tablet,delayed release (DR/EC) 1,000 mg PO BID 90 Days Qty: 360 3RF montelukast 10 mg tablet 10 mg PO DAILY fluticasone propion-salmeterol [Wixela Inhub] 500-50 mcg/dose blister with device 1 inh inhalation BID oxycodone 10 mg tablet 10 mg PO QID PRN (Reason: pain) 30 Days Qty: 120 0RF Discharge Orders: Discharge ED (Routine); Ordered 10/18/22 Ordered By: Montez Wayne Referrals: Jeannette Farnsworth DO [Primary Care Provider] - 1-3 days Discharge Diet: Advance as tolerated Discharge Activity: Resume usual activity Patient Instructions: Community Acquired Pneumonia (ED) Coding Level of Care Code ED Adult Basic Education Manager for Thaddeus Almodovar
[2022-10-18] MEDS: sodium chloride 0.9% 1,000 ML 999 ML IV (17:15)
[2022-10-18 17:21] VITALS: BP 167/112; PULSE 90; O2SAT 97
[2022-10-18 17:22] LABS: Basophils # 0.1 10^3/uL (0.0-0.1); Basophils % 0.7 %; Eosinophils # 0.3 10^3/uL (0.0-0.8); Eosinophils % 4.3 %; Hematocrit 45.3 % (42.0-52.0); Hemoglobin 15.3 g/dL (11.7-16.6); Lymphocytes # 1.9 10^3/uL (0.8-4.8); Lymphocytes % 27.7 %; Mean Corpuscular HGB Conc 33.8 g/dL (30.0-36.0); Mean Corpuscular Hemoglobin 32.1 pg (28.0-34.0); Mean Platelet Volume 10.7 fL (7.4-10.4); Monocytes # 0.5 10^3/uL (0.2-0.9); Monocytes % 7.8 %; Neutrophils # 4.08 10^3/uL (1.8-7.7); Neutrophils % 58.9 %; Nucleated Red Blood Cells % 0 %; Platelet Count 172 10^3/cmm (130-400); Red Blood Count 4.77 10^6/uL (4.1-5.3); Red Cell Distribution Width 11.7 % (12.1-15.1); White Blood Count 6.9 10^3/uL (4.0-10.0)
[2022-10-18 17:41] LABS: Rapid Strep A Test Negative (Negative)
[2022-10-18 17:45] LABS: SARS Covid-2 Antigen negative (Negative)
--- NOTE | 2022-10-18 17:48 | CTR_ITS ---
PROCEDURE INFORMATION: Exam: CT Chest Without Contrast; Diagnostic Exam date and time: 10/18/2022 6:12 PM Age: 62 years old Clinical indication: Fever; Additional info: Kristian nodule TECHNIQUE: Imaging protocol: Diagnostic computed tomography of the chest without contrast. Radiation optimization: All CT scans at this facility use at least one of these dose optimization techniques: automated exposure control; mA and/or kV adjustment per patient size (includes targeted exams where dose is matched to clinical indication); or iterative reconstruction. REPORTING DATA: Count of CT and Cardiac NM exams in prior 12 months: This patient has received [address] and 0 known cardiac nuclear medicine studies in the 12 months prior to the current study. COMPARISON: CT chest wo con [id number] 08/28/2022 8:21 AM RADIATION DOSE METRICS: Total DLP (mGy-cm): 495.54 FINDINGS: Lungs: Left upper lobe subsegmental airspace opacification suggestive of a pneumonic infiltrate, 1 month follow-up exam and close clinical correlation advised to assess for resolution as an underlying neoplastic process cannot be excluded. Emphysematous changes. Pleural spaces: Unremarkable. No pneumothorax. No pleural effusion. Heart: Unremarkable. No cardiomegaly. No pericardial effusion. Coronary arteries: Coronary artery atherosclerotic calcifications. Lymph nodes: Scattered prominent subcentimeter short axis nonspecific mediastinal lymph nodes. Vasculature: Unremarkable. No aortic aneurysm. Kidneys and ureters: Bilateral mild perinephric edema suggestive of renal insufficiency. Stomach and bowel: Diverticulosis without diverticulitis somewhat visualized. Bones/joints: Several upper thoracic spine compression deformities appear chronic. Soft tissues: Unremarkable. CT/CT chest wo con [id number] IMPRESSION: 1. Left upper lobe subsegmental airspace opacification suggestive of a pneumonic infiltrate, 1 month follow-up exam and close clinical correlation advised to assess for resolution as an underlying neoplastic process cannot be excluded. 2. Several upper thoracic spine compression deformities appear chronic. 3. Bilateral mild perinephric edema suggestive of renal insufficiency. 4. Diverticulosis without diverticulitis somewhat visualized. 5. Scattered prominent subcentimeter short axis nonspecific mediastinal lymph nodes. 6. Coronary artery atherosclerotic calcifications. 7. Emphysematous changes. COMMENTS: In the absence of a history or active diagnosis of lung cancer, it is recommended that this patient with emphysema be evaluated for enrollment in a low dose CT lung cancer screening program.
[2022-10-18 18:00] VITALS: BP 195/114; PULSE 83; O2SAT 97
[2022-10-18 18:00] LABS: Alanine Aminotransferase 10 U/L (0-41); Albumin Level 4.1 g/dL (3.5-5.2); Alkaline Phosphatase 60 U/L (40-130); Anion Gap 15.5 (5-19); Aspartate Amino Transferase 17 U/L (0-40); Blood Urea Nitrogen 14 mg/dL (8-23); Calcium 9.2 mg/dL (8.5-10.5); Carbon Dioxide 27 mmol/L (22-29); Chloride 95 mmol/L (98-107); Globulin 3.1 g/dL (1.3-4.6); Glucose 90 mg/dL (65-115); Osmolality Calculated 276 mOsm/kg (285-295); Potassium 4.5 mmol/L (3.5-5.1); Sodium 133 mmol/L (136-145); Total Bilirubin 0.6 mg/dL (0.15-1.2); Total Protein 7.2 g/dL (6.6-8.7)
[2022-10-18] MEDS: hyDRALAzine 20 mg/mL INJ 1 mL 10 MG IVP (19:01)
[2022-10-18] MEDS: doxycycline 100 mg Tablet PO (19:04)
[2022-10-18 19:15] LABS: Urine Appearance Clear (CLEAR); Urine Color Yellow (Yellow)
[2022-10-18 19:16] VITALS: BP 174/103; PULSE 85; RESP 16; O2SAT 96
[2022-10-18 19:16] LABS: Add Urine Microscopic? YES; Bilirubin Urine 1+ (Negative); Blood Urine 2+ (Negative); Glucose Urine UA Norm (Normal); Ketones Urine 1+ (Negative); Leukocyte Esterase Urine Trace (Negative); Nitrate Urine Negative (Negative); Protein Urine Neg (Negative); Urobilinogen Urine 1 mg/dL (Negative); pH Urine 6 (5-7)
[2022-10-18 19:20] LABS: Bacteria Urine 2+ /hpf
[2022-10-18 19:21] LABS: Hyaline Casts Urine 0-4 /lpf; Squamous Epithelial Cell Urine 55-80 /hpf (0-5)
== END 2022-10-18 19:16 | disposition home or self-care (01) ==
PROVIDERS: Emergency Medicine; Emergency Provider Emergency Medicine; PCP Family Medicine
DX: J18.9 Pneumonia, unspecified organism (principal); F17.210 Nicotine dependence, cigarettes, uncomplicated
CPT/HCPCS: 71045; 71250; 80053; 81001; 85025; 87081; 87426; 87880; 96374; 99285; 99291; J0360; J7030

== ENCOUNTER 2023-01-19 14:52 | Outpatient (CLI) | payer OTHER, SELFPAY ==
[2023-01-19 15:28] LABS: Blood Urea Nitrogen 13 mg/dL (8-23)
--- NOTE | 2023-01-19 15:30 | CT_ITS ---
WS: [id number] CT ANGIOGRAPHY ABDOMEN AND PELVIS AORTA HISTORY: I71.40 - Abdominal aortic aneurysm, without rupture, unsp... TECHNIQUE: CT angiogram is performed during IV injection. Reformation /MIP images reviewed. All CT sc ans at [facility] use at least one of these dose optimization techniques: automated exposure c ontrol; mA and/or kV adjustment per patient size (includes targeted exams where dose is matched to cl inical indication); or iterative reconstruction. CONTRAST: Omnipaque 350; 100 mL IV. DLP: 619.51 mGy.cm COMPARISON: MRI lumbar spine 08/28/2022 Emphysematous changes at the lung bases. No mass or pneumonia. Normal size heart. Small hiatal hernia . Abdominal aorta: Mild atherosclerotic changes throughout the abdominal aorta. Mild dilatation of the infrarenal aorta. Maximum transverse diameter is 3.2 cm x 2.9 cm anterior posterior. Mild aneurysmal dilatation extends over a length of 4.7 cm to the bifurcation. Aneurysm tapers at the bifurcation. Th ere is only a small amount of intimal thickening and calcified plaque throughout the abdominal aorta. Celiac axis and SMA are patent. There is a small amount of atherosclerotic plaque in the proximal SM A. JAYDA is also patent. Bilateral common iliac arteries are patent. There is calcified plaque and intimal thickening proximal ly greatest on the LEFT. Small ulcerated plaque proximal LEFT common iliac. Internal and external bridget ac arteries are patent. Early arterial imaging through the liver, spleen, pancreas, gallbladder and kidneys are negative. Gal lbladder is slightly contracted. Stomach is moderately distended with food products. No small bowel o bstruction. Normal appendix. No significant diverticular disease. No adenopathy or ascites. No destru ctive bone lesions. IMPRESSION: 1. Mild infrarenal abdominal aortic aneurysm with a maximal diameter of 3.2 cm. No increase in size s burak the lumbar MRI of 08/28/2022. 2. Mild atherosclerotic plaque continues into the common iliac arteries no aneurysms. 3. No ascites or adenopathy
[2023-01-19] MEDS: iohexol 350 mg/mL 500 mL Btl (per mL) IV (15:37)
== END 2023-01-19 14:53 | disposition home or self-care (01) ==
PROVIDERS: Radiology Neuroradiology; PCP Family Medicine; Visit Provider Specialist
DX: I71.40 Abdominal aortic aneurysm, without rupture, unspecified (principal)
CPT/HCPCS: 74174; 82565; 84520; Q9967

== ENCOUNTER 2023-02-25 14:20 | Outpatient (CLI) | payer MEDICARE, SELFPAY ==
--- NOTE | 2023-02-25 15:20 | XR_ITS ---
WS: [id number] 2 views of the left second finger, 02/25/2023 Clinical Data: left index finger injury Comparison: None. Findings: No fractures or dislocations are seen. The soft tissues are normal. The joint spaces are not remarkab le. Impression: Negative left second finger.
== END 2023-02-25 14:21 | disposition home or self-care (01) ==
PROVIDERS: PCP Family Medicine; Visit Provider Family Medicine
DX: S69.92XA Unspecified injury of left wrist, hand and finger(s), initial encounter (principal); X58.XXXA Exposure to other specified factors, initial encounter; Z13.6 Encounter for screening for cardiovascular disorders; Z13.1 Encounter for screening for diabetes mellitus
CPT/HCPCS: 73140; 80053; 80061

== ENCOUNTER → 2023-03-09 14:35 | Outpatient (BNVA) | payer MEDICARE, SELFPAY | PROVIDERS: PCP Family Medicine; Visit Provider Surgery | DX: Z12.11 Encounter for screening for malignant neoplasm of colon (principal) | CPT/HCPCS: 99024; 99203 ==

== ENCOUNTER 2023-04-09 08:19 | Day surgery (SDC) | payer MEDICARE, SELFPAY ==
[2023-04-09 08:45] VITALS: BP 134/94; PULSE 94; RESP 18; TEMP 36.7; O2SAT 96
[2023-04-09] MEDS: sodium chloride 0.9% 1,000 ML 30 ML IV (08:47)
--- NOTE | 2023-04-09 09:18 | P.ANESASSM_ITS ---
Pre-Anesthetic Assessment Height/Weight: Height 1.91 m Weight 98.43 kg Temp Pulse Resp BP Pulse Ox O2 Del Method 98.0 F 94 18 134/94 96 Room Air 04/09/23 08:45 04/09/23 08:45 04/09/23 08:45 04/09/23 08:45 04/09/23 08:45 04/09/23 08:45 Operation Date: 04/09/23 09:45 Proposed Procedures p Colonoscopy G0121,Z12.11(Not Applicable) - Gennaro Lim DO Familial anesthetic complications: None Was Beta Praveena taken within 24 hours: N/A Was Clonidine taken within 24 hours: N/A Last intake: Intake Last Liquid Date 04/08/23 Last Liquid Time 23:30 Last Solid Date 04/07/23 Last Solid Time 19:00 Social No alcohol and No tobacco Exam alert, oriented x 3, clear to auscultation bilaterally and regular rate & rhythm Airway Mallampati: Class II Dentition: full Pulmonary Chronic Obstructive Pulmonary Disease CV/HEM AAA Musc/skel Lower Back Pain Neuropsych Seizure Anesthetic Plan ASA status: 3 Anesthesia: MAC Risk of > 500 ml blood loss (7ml/kg in children): No Medications/Allergies Home Medications Medication Instructions Recorded Confirmed Last Taken Type divalproex 500 mg tablet,delayed 1,000 mg (2 x 500 mg) PO BID 90 08/05/22 04/07/23 04/09/23 Rx release (Depakote) days #360 tabs fluticasone 500 mcg-salmeterol 50 1 inh inhalation BID 09/24/22 04/07/23 04/09/23 History mcg/dose blistr powdr for inhalation (Wixela Inhub) Allergies Allergy/AdvReac Type Severity Reaction Status Date / Time Penicillins Allergy unknown Verified 04/07/23 12:23 Current Medications Generic Name Dose Route Start Last Admin Trade Name Freq PRN Reason Stop Dose Admin Sodium Chloride 1,000 mls @ 30 mls/hr 04/09/23 08:30 04/09/23 08:47 Sodium Chloride 0.9% IV 04/10/23 08:29 30 mls/hr .Q24H KATE Administration PFSH Anesthesia Medical History (Updated 03/14/23 @ 23:36 by Lin Palafox MD) COPD (chronic obstructive pulmonary disease) Abdominal aortic aneurysm Facet arthritis, degenerative, lumbar spine Smoker Primary generalized epilepsy, major Surgical History (Updated 03/14/23 @ 23:36 by Lin Palafox MD) History of lumbar discectomy L5/S1 History of meniscectomy of right knee Family History Father No problems noted. Other CAD (coronary artery disease) Diabetes Social History Smoking and tobacco/nicotine status: current every day tobacco/nicotine user cigarettes Packs smoked per day: 1 Years cigarettes smoked: 50 Alcohol intake: current Alcohol intake frequency: holidays/special occasions only Substance/Drug Use: never Marital status: / Number of children: 3 Number of grandchildren: 16 Current occupational status: employed Current occupation: [employer] Special lucio needs: No Agree to transfusion: Yes Data Anesthesia Cardiac Studies: No Data to Display
--- NOTE | 2023-04-09 09:54 | PM.HP ---
Providers/Chief Complaint Primary Care Provider: Lin Palafox MD Chief Complaint: G0121 Z12.11 History of Present Illness eFrdinand Pedraza is a 63 year old male Review of Systems General: Reports: 10 or more systems reviewed and unremarkable except in HPI and below Medications/Allergies Home Medications Medication Instructions Recorded Confirmed Last Taken Type divalproex 500 mg tablet,delayed 1,000 mg (2 x 500 mg) PO BID 90 08/05/22 04/07/23 04/09/23 Rx release (Depakote) days #360 tabs fluticasone 500 mcg-salmeterol 50 1 inh inhalation BID 09/24/22 04/07/23 04/09/23 History mcg/dose blistr powdr for inhalation (Wixela Inhub) Allergies Allergy/AdvReac Type Severity Reaction Status Date / Time Penicillins Allergy unknown Verified 04/07/23 12:23 PFSH Acute PFSH: Medical History (Updated 04/09/23 @ 09:54 by Gennaro Lim DO) COPD (chronic obstructive pulmonary disease) Abdominal aortic aneurysm Facet arthritis, degenerative, lumbar spine Smoker Primary generalized epilepsy, major Surgical History (Updated 03/14/23 @ 23:36 by Lin Palafox MD) History of lumbar discectomy L5/S1 History of meniscectomy of right knee Family History Father No problems noted. Other CAD (coronary artery disease) Diabetes Social History Smoking and tobacco/nicotine status: current every day tobacco/nicotine user cigarettes Packs smoked per day: 1 Years cigarettes smoked: 50 Alcohol intake: current Alcohol intake frequency: holidays/special occasions only Substance/Drug Use: never Marital status: / Number of children: 3 Number of grandchildren: 16 Current occupational status: employed Current occupation: [employer] Special lucio needs: No Agree to transfusion: Yes Vitals/I&O/Wt Last Vital Signs Temp 98.0 F 04/09/23 08:45 Pulse 94 04/09/23 08:45 Resp 18 04/09/23 08:45 BP 134/94 04/09/23 08:45 Pulse Ox 96 04/09/23 08:45 O2 Del Method Room Air 04/09/23 08:45 Weight last 48 hrs Weight 217 lb A&P Assessment and plan (1) Colon cancer screening: Plan Colonoscopy Attestations Medical Necessity Statement*: Home Coding Level of Care Code Acute Code for Chg Fwd Diagnoses Colon cancer screening Z12.11
[2023-04-09 10:15] VITALS: BP 172/102; PULSE 83; RESP 16; TEMP 36.2; O2SAT 98
[2023-04-09 10:31] VITALS: BP 165/101; PULSE 78; RESP 16; O2SAT 98
--- NOTE | 2023-04-09 13:32 | ANE.PACU2 ---
Inpatient post-anesthesia follow up: Airway intact: Yes Vital signs: Temperature 97.1 F Pulse Rate 78 Respiratory Rate 16 Blood Pressure 165/101 Pulse Oximetry 98 Oxygen Delivery Me thod Room Air Oxygen Flow Rate Fraction of Inspir ed Oxygen Hydration adequate: Yes Nausea and vomiting: No Pain level: 1 Mental status: Baseline
== END 2023-04-09 11:00 | disposition home or self-care (01) ==
PROVIDERS: PCP Family Medicine; Visit Provider Surgery
PROC: 0DJD8ZZ Inspection of Lower Intestinal Tract, Via Natural or Artificial Opening Endoscopic (ICD-10-PCS; CPT 45378; principal; 2023-04-09 09:45)
DX: Z12.11 Encounter for screening for malignant neoplasm of colon (principal); J44.9 Chronic obstructive pulmonary disease, unspecified; F17.210 Nicotine dependence, cigarettes, uncomplicated; K64.8 Other hemorrhoids
CPT/HCPCS: G0121; J2704; J7030

== ENCOUNTER → 2023-04-13 08:34 | Outpatient (BNVA) | payer MEDICARE, SELFPAY | PROVIDERS: PCP Family Medicine; Referring Provider Family Medicine; Visit Provider Student in an Organized Health Care Education/Training Program | DX: R22.32 Localized swelling, mass and lump, left upper limb; M79.642 Pain in left hand | CPT/HCPCS: 73130; 99213 ==

== ENCOUNTER → 2023-08-31 15:12 | Outpatient (BNVA) | payer MEDICARE, SELFPAY | PROVIDERS: PCP Family Medicine; Visit Provider Specialist | DX: R29.90 Unspecified symptoms and signs involving the nervous system (principal); G40.309 Generalized idiopathic epilepsy and epileptic syndromes, not intractable, without status epilepticus; G25.0 Essential tremor | CPT/HCPCS: 99213 ==

== ENCOUNTER → 2023-09-17 08:19 | Outpatient (BNVA) | payer MEDICARE, SELFPAY | PROVIDERS: PCP Family Medicine; Visit Provider Family Medicine | DX: R20.0 Anesthesia of skin (principal); G25.0 Essential tremor | CPT/HCPCS: 80053; 82607; 84443; 85025 ==

== ENCOUNTER → 2023-09-30 07:42 | Outpatient (BNVA) | payer MEDICARE, SELFPAY | PROVIDERS: PCP Family Medicine; Visit Provider Clinical Nurse Specialist Adult Health | DX: E87.1 Hypo-osmolality and hyponatremia (principal) | CPT/HCPCS: 80048 ==

== ENCOUNTER 2023-11-10 09:46 | Outpatient (CLI) | payer MEDICARE, SELFPAY ==
--- NOTE | 2023-11-10 10:15 | USCV_ITS ---
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
== END 2023-11-10 09:47 | disposition home or self-care (01) ==
PROVIDERS: PCP Family Medicine; Visit Provider Family Medicine
DX: I73.9 Peripheral vascular disease, unspecified (principal)
CPT/HCPCS: 93922

== ENCOUNTER → 2023-11-29 10:48 | Outpatient (BNVA) | payer MEDICARE, SELFPAY | PROVIDERS: PCP Family Medicine; Referring Provider Family Medicine; Visit Provider Internal Medicine | DX: R00.2 Palpitations (principal); R00.0 Tachycardia, unspecified; I49.1 Atrial premature depolarization; I49.3 Ventricular premature depolarization | CPT/HCPCS: 93246 ==

== ENCOUNTER → 2024-02-09 14:35 | Outpatient (BNVA) | payer MEDICARE, SELFPAY | PROVIDERS: PCP Family Medicine; Visit Provider Family Medicine | DX: R53.83 Other fatigue (principal); R20.0 Anesthesia of skin; G25.0 Essential tremor; Z79.899 Other long term (current) drug therapy | CPT/HCPCS: 80053; 82306; 82607; 83735; 84443; 85025 ==

== ENCOUNTER 2024-02-18 13:27 | Outpatient (CLI) | payer MEDICARE, SELFPAY ==
--- NOTE | 2024-02-18 13:37 | XR_ITS ---
WS: [id number] XR lumbar spine 2-3V* [id number] REASON FOR EXAM: low back pain, s/p surg 2022, decreased sensation BLE FINDINGS: Lumbar spine is unchanged compared to the previous examination of 09/08/2022. Mild rotatory dextroscoliosis. Normal lumbar lordosis. Mild biconcave compression deformities L5-S1. Mild intervertebral disc space narrowing at L5-S1. Minimal anterolisthesis of L3 in relation to L4. XR/XR lumbar spine 2-3V* [id number] IMPRESSION: Mild degenerative spondylosis of the lumbar spine stable compared to 09/08/2022.
== END 2024-02-18 13:28 | disposition home or self-care (01) ==
PROVIDERS: PCP Family Medicine; Visit Provider Family Medicine
DX: R20.0 Anesthesia of skin (principal); M54.50 Low back pain, unspecified
CPT/HCPCS: 72100

== ENCOUNTER → 2024-03-29 14:14 | Outpatient (BNVA) | payer MEDICARE, SELFPAY | PROVIDERS: PCP Family Medicine; Visit Provider Family Medicine | DX: M79.10 Myalgia, unspecified site; M79.606 Pain in leg, unspecified | CPT/HCPCS: 80053; 82306; 84443; 85025; 85651; 86140 ==

== ENCOUNTER → 2024-04-20 13:53 | Outpatient (BNVA) | payer MEDICARE, SELFPAY | PROVIDERS: PCP Family Medicine; Visit Provider Physician Assistant | DX: R22.32 Localized swelling, mass and lump, left upper limb (principal); M79.642 Pain in left hand | CPT/HCPCS: 73130; 99214 ==

== ENCOUNTER 2024-06-16 05:37 | Day surgery (SDC) | payer MEDICARE, SELFPAY ==
[2024-06-16] VITALS (7 sets, daily range): BP systolic 109–146; BP diastolic 73–94; PULSE 74–89; RESP 17–18; TEMP 36.1–36.7; O2SAT 97–100; BMI 29.9
--- NOTE | 2024-06-16 06:04 | ANES.PREANE2 ---
Pre-Anesthetic Assessment Height/Weight: Height 6 ft 3 in Preop Diagnosis: Finger mass Operation Date: 06/16/24 07:00 Proposed Procedures p left index finger mass excision(Left) - Apolinar Bradshaw, DO Was Beta Praveena taken within 24 hours: N/A Was Clonidine taken within 24 hours: N/A Social Tobacco and No alcohol Exam alert, oriented x 3 and regular rate & rhythm Airway Submandibular: within normal limits Cervical ROM: within normal limits Mallampati: Class II Comments: Comments: No upper teeth, poor dentition on the bottom. Denies any loose teeth Anesthetic Plan ASA status: 3 Anesthesia: MAC Other: No prior issues with anesthesia NPO since yesterday History of hypertension on losartan Epilepsy, on divalproex. Most recent seizure 12 years ago Current smoker, COPD Labs reviewed 03/29/2024 acceptable for procedure EKG sinus rhythm Plan for MAC anesthesia with local via surgeon Medications/Allergies Home Medications ?Medication ?Instructions ?Recorded ?Confirmed ?Last Taken ?Type albuterol sulfate 90 mcg/actuation 2 puff inhalation Q6H PRN 08/31/23 06/16/24 06/15/24 Rx aerosol inhaler shortness of breath or wheezing #8.5 grams divalproex 500 mg tablet,delayed 1,000 mg (2 x 500 mg) PO BID 90 08/31/23 06/16/24 06/16/24 Rx release (Depakote) days #360 tabs losartan 25 mg tablet 25 mg PO BID #180 tabs 04/24/24 06/16/24 06/16/24 Rx fluticasone propionate 50 2 spray intranasal BID 90 days #16 05/04/24 06/16/24 06/15/24 Rx mcg/actuation nasal grams spray,suspension (Flonase Allergy Relief) fluticasone 500 mcg-salmeterol 50 500 ea inhalation BID 06/15/24 06/16/24 06/16/24 History mcg/dose blistr powdr for inhalation (Wixela Inhub) Allergies Allergy/AdvReac Type Severity Reaction Status Date / Time Penicillins Allergy unknown Verified 06/15/24 08:36 [facility] Anesthesia Medical History Insomnia COPD (chronic obstructive pulmonary disease) Abdominal aortic aneurysm Facet arthritis, degenerative, lumbar spine Smoker Primary generalized epilepsy, major Surgical History History of lumbar discectomy L5/S1 History of meniscectomy of right knee Family History Father No problems noted. Other CAD (coronary artery disease) Diabetes Social History Smoking and tobacco/nicotine status: current every day tobacco/nicotine user cigarettes Packs smoked per day: 1 Years cigarettes smoked: 50 Alcohol intake: current Alcohol intake frequency: holidays/special occasions only Substance/Drug Use: never Marital status: / Number of children: 3 Number of grandchildren: 16 Current occupational status: employed Current occupation: [employer] Special lucio needs: No Agree to transfusion: Yes Data Anesthesia Cardiac Studies: No Data to Display
[2024-06-16] MEDS: sodium chloride 0.9% 1,000 ML 30 ML IV (06:34)
[2024-06-16] MEDS: ketorolac 30 mg/mL INJ IVP (06:52)
[2024-06-16] MEDS: acetaminophen 1,000 MG/100 ML PIGGYBACK 400 MG IV (06:53)
--- NOTE | 2024-06-16 06:58 | W.PM.OPSFHP ---
Same Day Surgery H&P Indication for Procedure/HPI DATE OF PROCEDURE: June 16, 2024 CHIEF COMPLAINT/INDICATIONFOR SURGICAL PROCEDURE: Left index finger mucous PREOP DIAGNOSIS: Left index finger mass PLANNED PROCEDURE: Operation Date: 06/16/24 07:00 Proposed Procedures p left index finger mass excision(Left) - Apolinar Hertford, DO Medications/Allergies* Home Medications ?Medication ?Instructions ?Recorded ?Confirmed ?Type fluticasone 500 mcg-salmeterol 50 500 ea inhalation BID 06/15/24 06/16/24 History mcg/dose blistr powdr for inhalation (Wixela Inhub) Allergies/Adverse Reactions Allergy/AdvReac Type Severity Reaction Status Date / Time Penicillins Allergy unknown Verified 06/15/24 08:36 Current Medications: Generic Name Dose Route Start Last Admin Trade Name Freq PRN Reason Stop Dose Admin Sodium Chloride 1,000 mls @ 30 mls/hr 06/16/24 06:00 06/16/24 06:34 Sodium Chloride 0.9% IV 06/17/24 05:59 30 mls/hr .Q24H KATE Administration Pertinent History/Comorbid Conditions* Medical History (Updated 03/29/24 @ 14:05 by Lin Palafox MD) Insomnia COPD (chronic obstructive pulmonary disease) Abdominal aortic aneurysm Facet arthritis, degenerative, lumbar spine Smoker Primary generalized epilepsy, major Surgical History (Updated 03/14/23 @ 23:36 by Lin Palafox MD) History of lumbar discectomy L5/S1 History of meniscectomy of right knee Family History (Updated 07/31/20 @ 16:08 by Patti Hayward RN) Diabetes CAD (coronary artery disease) Social History Smoking and tobacco/nicotine status: current every day tobacco/nicotine user cigarettes Packs smoked per day: 1 Years cigarettes smoked: 50 Alcohol intake: current Alcohol intake frequency: holidays/special occasions only Substance/Drug Use: never Marital status: / Number of children: 3 Number of grandchildren: 16 Current occupational status: employed Current occupation: [employer] Special lucio needs: No Agree to transfusion: Yes Pertinent Exam Findings alert, oriented x 3, operative site marked and procedure specific exam findings Please refer to detailed orthopedic examination on 04/20/2024: Examination left hand: Examination left index finger demonstrates a palpable soft mobile mass is tenderness to palpation around the DIP joint of finger. Patient has full flexion of the finger. No A1 allie tenderness noted. Will do flex and extend the digit as well as make a fist sensations intact to the radial and ulnar sides of the digit. Fingertips warm well-perfused brisk capillary refill less than 2 seconds. No signs of infection or abscess noted. Recommendations Surgery/Procedure today Other Plans: Plan to proceed to the OR today for left index finger mass excision. Patient understands the ins and outs procedure risk benefits complication alternatives to surgery and through shared decision make elects proceed with surgical intervention. All questions answered at this time. Coding Level of Care Code Acute Code for Chg Fwd
[2024-06-16] MEDS: ceFAZolin 2,000 MG in sodium chloride 0.9% (plus) 50 ML 100 MG IV (07:01)
[2024-06-16] MEDS: ROPivacaine 0.5% SDV 30 mL 25 MG INJECTION (07:12)
[2024-06-16] MEDS: lidocaine 1% 10 ML INJ 5 ML XX (07:12)
--- NOTE | 2024-06-16 08:13 | W.PM.BPON ---
Date of Procedure: 06/16/2024 Surgeon: Apolinar Bradshaw DO Mud Analysis Supervisor(s): None Procedure(s) performed: Left index finger cyst excision (3 cm x 2.5 cm x 1 cm) Findings of the procedure(s): Patient found to have a left index finger epidermal inclusion cyst underwent procedure to have this excised without issues or complications taken back to PACU stable condition Estimated blood loss: 5 mL Specimen(s) removed: Left index finger epidermal inclusion cyst excised and sent for pathology Post-operative diagnosis: Left index finger epidermal inclusion cyst
--- NOTE | 2024-06-16 08:14 | P.OP_ITS ---
Operative Report Date of procedure: June 16, 2024 Surgeon: Apolinar Bradshaw DO Procedure: Preoperative diagnosis left index finger mass/cyst Post-op diagnosis: Left?Index?finger epidermal inclusion cyst Procedure done: Left index finger cyst excision (3 cm x 2.5 cm x 1 cm) Surgeon: Apolinar Bradshaw DO Estimated blood loss: 5 mL Tourniquet time 22 minutes IV fluids: 500 mL Complications: None Findings: See operative report narrative Condition: stable Disposition: same day Brief History: Patient presents to the outpatient setting with findings consistent with a Left Index?finger mass/?cyst.? pt has been worked up in the outpatient setting and is failed conservative treatment approach.?Pt wishes to proceed with surgical intervention.? We talked about the risk benefits complications and alternatives with surgical nonsurgical treatment options.? Understanding risk of surgery pt agrees to proceed with a Left Index?finger mass/?cyst?excision.? All questions answered. Procedure: Patient was seen evaluated in the preoperative holding area.? Consent was reviewed and signed with patient.? Correct extremity was then marked.? Patient was then seen and evaluated by the anesthesia department once cleared for surgery patient was then taken back to the operative suite patient was placed in supine position and all bony prominences well-padded the patient was properly secured to the bed.? Armboard was applied to the Left upper extremity. This point time the Left upper extremity was then prepped and draped in standard orthopedic fashion.? A final timeout was performed.? Patient received appropriate preoperative antibiotics. Prior to proceeding with incision sites I then performed digital block of the Left Index?finger under sterile aseptic technique Esmarch was used exsanguinate left upper extremity tourniquet insufflated to 250 mmHg. ? Patient's mass was noted to being most pronounced over the middle phalanx subsequently over the volar mass/cyst today standard Thiago fashion over the mass. Sharp scalpel incision was made through skin only switch to Littler dissection scissors and created full-thickness skin flaps. At this point in time identified both neurovascular bundles were protected throughout the case. This point time came down over the cyst which was confirmed to being more soft and cystlike rather than a mass. At this point in time I then began to slowly dissect out the cyst and peel this away from the neurovascular bundle which it was residing on top of at this point in time it did have a horseshoe like appearance that horseshoe underneath and around the bundle and extended this distally over to the distal phalanx and over the A5 allie. At this point in time there was no evidence of this communicating deep to a tendinous structure a nd the pulleys were intact as well as the joints of the PIP and DIP however it was clearly evident this was filled with a thickened white cloudy substance consistent with a epidermal inclusion cyst this was subsequently decompressed to help mobilize well it was dissected and I will keeping satisfactory tension I utilized bipolar electrocautery to finalize remove this off of all surrounding structures once again all neurovascular bundles were protected throughout this procedure and the cyst was removed to its entirety which measured 3 cm x 2-1/2 cm x 1 cm. The cyst was fully removed and then sent for pathology. At this point in time thorough irrigation performed tourniquet was released and hemostasis was satisfactory bipolar electrocautery. At this point in time thorough irrigation was once again performed and then I subsequently closed this in standard skin fashion with a nylon suture. This was then dressed with Xeroform 4 x 4's Curlex and an Simon wrap for bulky soft dressing. Patient was then awake from anesthesia and taken back to PACU in stable condition. Disposition: Patient taken PACU stable condition recovering well will receive appropriate discharge instruction as well as pain medication postoperatively will follow on patient's path report to see patient's definitive diagnosis will follow-up with patient in office in 2 weeks and patient understands visit as usual questions or concerns and contact the office. All questions answered.
--- NOTE | 2024-06-16 09:12 | ANE.PACU2 ---
Inpatient post-anesthesia follow up: Airway intact: Yes Vital signs: Temperature 97.0 F Pulse Rate 75 Respiratory Rate 18 Blood Pressure 146/87 Pulse Oximetry 98 Oxygen Delivery Me thod Room Air Oxygen Flow Rate Fraction of Inspir ed Oxygen Hydration adequate: Yes Nausea and vomiting: No Pain level: 1 Mental status: Baseline
== END 2024-06-16 09:12 | disposition home or self-care (01) ==
PROVIDERS: PCP Family Medicine; Visit Provider Student in an Organized Health Care Education/Training Program
PROC: (CPT 11423; principal; 2024-06-16 07:00)
DX: L72.0 Epidermal cyst (principal); I10 Essential (primary) hypertension; G40.409 Other generalized epilepsy and epileptic syndromes, not intractable, without status epilepticus; F17.210 Nicotine dependence, cigarettes, uncomplicated; J44.9 Chronic obstructive pulmonary disease, unspecified; Z79.899 Other long term (current) drug therapy; Z88.0 Allergy status to penicillin
CPT/HCPCS: 11423; 88304; J0131; J0690; J1885; J2704; J2795; J7030

== ENCOUNTER → 2024-06-30 09:30 | Outpatient (BNVA) | payer MEDICARE, SELFPAY | PROVIDERS: PCP Family Medicine; Visit Provider Physician Assistant | DX: R22.32 Localized swelling, mass and lump, left upper limb (principal) | CPT/HCPCS: 99024 ==

== ENCOUNTER 2024-07-06 10:33 | Outpatient (RCR) | payer MEDICARE, SELFPAY | END 2024-07-07 23:59 | disposition home or self-care (01) | LOC: SOT 10:33 | PROVIDERS: Visit Provider Physician Assistant | DX: M67.442 Ganglion, left hand (principal) | CPT/HCPCS: 97110; 97165; 97530 ==

== ENCOUNTER 2024-07-08 06:00 | Outpatient (RCR) | payer MEDICARE, SELFPAY | END 2024-08-07 23:59 | disposition home or self-care (01) | LOC: SOT 06:00 | PROVIDERS: PCP Family Medicine; Visit Provider Physician Assistant | DX: M71.342 Other bursal cyst, left hand (principal) | CPT/HCPCS: 97022; 97110; 97140 ==

== ENCOUNTER → 2024-08-14 13:06 | Outpatient (BNVA) | payer MEDICARE, SELFPAY | PROVIDERS: PCP Family Medicine; Visit Provider Family Medicine | DX: R53.83 Other fatigue (principal); I10 Essential (primary) hypertension; M79.10 Myalgia, unspecified site | CPT/HCPCS: 80053; 80061; 82306; 82607; 84443; 85025 ==

== ENCOUNTER → 2024-08-25 09:53 | Outpatient (BNVA) | payer MEDICARE, SELFPAY | PROVIDERS: PCP Family Medicine; Visit Provider Physician Assistant | DX: Z98.890 Other specified postprocedural states (principal) | CPT/HCPCS: 99024 ==

== ENCOUNTER 2024-08-29 14:21 | Outpatient (CLI) | payer MEDICARE, SELFPAY ==
--- NOTE | 2024-08-29 14:31 | XR_ITS ---
WS: [id number] Exam: XR chest 2V insp/exp [id number] Date/Time of Exam: 08/29/2024 2:34 PM Reason For Exam: cough, sob, increased work of breathing, hx COPD, smoker Comparison 10/18/2022. The lungs are fully inflated and clear. Normal cardiomediastinal silhouette. No pleural effusions. Unremarkable bony structures. No pneumothorax. XR/XR chest 2V insp/exp [id number] IMPRESSION: 1. No acute cardiopulmonary finding.
== END 2024-08-29 14:22 | disposition home or self-care (01) ==
LOC: LAB 14:22 → RAD 14:26
PROVIDERS: PCP Family Medicine; Visit Provider Family Medicine
DX: R05.9 Cough, unspecified (principal); E87.1 Hypo-osmolality and hyponatremia
CPT/HCPCS: 71046; 80048; 85025

== ENCOUNTER → 2024-08-30 13:48 | Outpatient (BNVA) | payer MEDICARE, SELFPAY | PROVIDERS: PCP Family Medicine; Visit Provider Specialist | DX: G40.309 Generalized idiopathic epilepsy and epileptic syndromes, not intractable, without status epilepticus (principal); G25.0 Essential tremor; F43.29 Adjustment disorder with other symptoms | CPT/HCPCS: 99214 ==

== ENCOUNTER → 2025-02-21 09:56 | Outpatient (BNVA) | payer MEDICARE, SELFPAY | PROVIDERS: PCP Family Medicine; Visit Provider Family Medicine | DX: R42 Dizziness and giddiness (principal); G25.0 Essential tremor | CPT/HCPCS: 80053; 84443; 85025 ==

== ENCOUNTER 2025-03-05 12:44 | Outpatient (CLI) | payer MEDICARE, SELFPAY ==
--- NOTE | 2025-03-05 12:52 | XR_ITS ---
WS: [id number] Exam: XR lumbar spine 2-3V* [id number] Date/Time of Exam: 03/05/2025 12:56 PM Reason For Exam: chronic low back pain DLP: Comparison 02/18/2024. No acute fracture. Disc spaces are relatively well-maintained. Facet DJD from L3-S1. Mild dextroscoliosis. XR/XR lumbar spine 2-3V* [id number] IMPRESSION: 1. Facet DJD and mild dextroscoliosis. 2. No fracture or malalignment.
== END 2025-03-05 12:45 | disposition home or self-care (01) ==
PROVIDERS: PCP Family Medicine; Visit Provider Family Medicine
DX: M47.817 Spondylosis without myelopathy or radiculopathy, lumbosacral region (principal); M51.16 Intervertebral disc disorders with radiculopathy, lumbar region; M41.86 Other forms of scoliosis, lumbar region
CPT/HCPCS: 72100

== ENCOUNTER → 2025-03-08 13:43 | Outpatient (BNVA) | payer MEDICARE, SELFPAY | PROVIDERS: PCP Family Medicine; Visit Provider Orthopaedic Surgery | DX: M51.16 Intervertebral disc disorders with radiculopathy, lumbar region (principal); M54.2 Cervicalgia | CPT/HCPCS: 72050; 72110; 99213 ==

== ENCOUNTER 2025-03-19 15:04 | Outpatient (CLI) | payer MEDICARE, SELFPAY ==
--- NOTE | 2025-03-19 15:45 | CT_ITS ---
WS: [id number] LDCT LUNG CANCER SCREENING HISTORY: lung cancer screening TECHNIQUE: Axial imaging performed from the apices to 1 cm below the costophrenic angles. Coronal and sagittal reformats are submitted with axial MIP series. All CT scans at [facility] use at least one of these dose optimization techniques: automated exposure control; mA and/or kV adjustment per patient size (includes targeted exams where dose is matched to clinical indication); or iterative reconstruction. DLP: 88.89 mGy.cm DIvol: Mean CTDIvol: 1.60 (mGy) COMPARISON: 10/18/2022 Diagnostic quality: Satisfactory Lungs: Mild pulmonary hyperexpansion. Centrilobular emphysema. RIGHT upper lobe pulmonary nodule measures 5 mm. No additional pulmonary nodule or mass. Heart: Normal size heart with no pericardial effusion.. Extensive [place] coronary artery calcifications. Other findings: Normal size aorta. Mild atherosclerotic plaque. No pathologically enlarged mediastinal or hilar lymph nodes. Small hiatal hernia. No adrenal mass. Mild increase in thoracic kyphosis. Mild anterior wedging of several upper thoracic vertebral bodies, stable. CT/CT lung screening [id number] IMPRESSION: LUNG-RADS: 3-Probably Benign FOLLOW UP: 6 Month LDCT OTHER FINDINGS (S MODIFIER): None.
== END 2025-03-19 15:05 | disposition home or self-care (01) ==
LOC: RAD 15:05
PROVIDERS: PCP Family Medicine; Visit Provider Family Medicine
DX: Z12.2 Encounter for screening for malignant neoplasm of respiratory organs (principal); Z87.891 Personal history of nicotine dependence; J98.4 Other disorders of lung; J43.2 Centrilobular emphysema; R91.1 Solitary pulmonary nodule; I70.90 Unspecified atherosclerosis; K44.9 Diaphragmatic hernia without obstruction or gangrene; M40.294 Other kyphosis, thoracic region; M43.8X4 Other specified deforming dorsopathies, thoracic region
CPT/HCPCS: 71271

== ENCOUNTER 2025-03-28 12:46 | Outpatient (RCR) | payer MEDICARE, SELFPAY | END 2025-04-08 23:59 | disposition home or self-care (01) | LOC: SPT 12:46 | PROVIDERS: PCP Family Medicine; Visit Provider Orthopaedic Surgery | DX: M54.2 Cervicalgia (principal); M54.9 Dorsalgia, unspecified; G89.29 Other chronic pain | CPT/HCPCS: 97161 ==

== ENCOUNTER 2025-04-09 05:00 | Outpatient (RCR) | payer MEDICARE, SELFPAY | END 2025-05-09 23:59 | disposition home or self-care (01) | LOC: SPT 05:00 | PROVIDERS: PCP Family Medicine; Visit Provider Orthopaedic Surgery | DX: M54.2 Cervicalgia (principal); M54.9 Dorsalgia, unspecified; G89.29 Other chronic pain | CPT/HCPCS: 97110 ==